=== PATIENT | female | born 1935 ===

== ENCOUNTER 2019-06-09 05:31 | Day surgery (SDC) | payer OTHER ==
[~2019-06-09 05:31] MED LIST: DORZOLAMIDE-TIM10 ML; LUMIGAN2.5 M1; NEURONTIN600 MG; PRAVASTATIN SOD10 MG
== END 2019-06-09 12:04 | disposition home or self-care (01) ==
LOC: CIR.AMB 05:31
DX: S52.532A Colles' fracture of left radius, initial encounter for closed fracture (principal)
CPT/HCPCS: 25609; 25118; 25280; C1776

== ENCOUNTER → 2020-08-15 | Emergency (ER) | payer OTHER ==
[~2020-08-15] VITALS: Ht 157.5 cm; Wt 63.5 kg
== END | disposition home or self-care (01) ==
LOC: ER 07:38
DX: S01.02XA Laceration with foreign body of scalp, initial encounter (principal); M54.2 Cervicalgia; S06.2X9A Diffuse traumatic brain injury with loss of consciousness of unspecified duration, initial encounter; R41.0 Disorientation, unspecified; W01.198A Fall on same level from slipping, tripping and stumbling with subsequent striking against other object, initial encounter; Y93.89 Activity, other specified; Y92.012 Bathroom of single-family (private) house as the place of occurrence of the external cause; Y99.8 Other external cause status; Z03.818 Encounter for observation for suspected exposure to other biological agents ruled out